=== PATIENT | male | born 1995 | race Caucasian/White ===

== ENCOUNTER 2019-09-16 09:56 | Emergency (ER) | payer MEDICAID ==
[~2019-09-16] VITALS: Ht 162.6 cm; Wt 63.5 kg
[2019-09-16 10:04] VITALS: BP 130/85
--- NOTE | 2019-09-16 10:06 | NUR ---
Patient ambulated to bed 12. RN evaluating patient at bedside.
--- NOTE | 2019-09-16 10:30 | NUR ---
dr prater at bedside.
--- NOTE | 2019-09-16 10:30 | NUR ---
c/o n/v/d with abdominal cramping x yesterday---cold sweats and chills today left work early due to symptoms. pt awake ,alert , afibrile , no meds taken. ambulatory with steady gait. hx--denies rx--none
--- NOTE | 2019-09-16 10:37 | NUR ---
Patient discharged with v/s stable. Written and verbal after care instructions given and explained regarding diarrhea . Patient alert, oriented and verbalized understanding of instructions. Ambulatory with steady gait. All questions addressed prior to discharge. ID band removed. Patient advised to follow up with PMD. Rx of ciprofloxacin 500 mg/tab ,motrin 600mg/tab , zofran , imodium given. Patient educated on indication of medication including possible reaction and side effects. Opportunity to ask questions provided and answered.excuse for work given to pt.
== END 2019-09-16 10:37 | disposition home or self-care (01) ==
LOC: MED 09:56
DX: R10.13 Epigastric pain (principal); R11.2 Nausea with vomiting, unspecified; R19.7 Diarrhea, unspecified
CPT/HCPCS: 99283

== ENCOUNTER 2023-03-31 10:18 | Emergency (ER) | payer MEDICAID, OTHER ==
[~2023-03-31] VITALS: Ht 170.2 cm; Wt 76.7 kg
[2023-03-31 10:25] VITALS: BP 158/89; PULSE 80; RESP 20; TEMP 98; O2SAT 99
[2023-03-31] MEDS ORDERED: RALT400T PO (11:29)
[2023-03-31] MEDS ORDERED: EMTR1TAB12 PO (11:29)
== END 2023-03-31 11:39 | disposition home or self-care (01) ==
LOC: MED 10:18
DX: R03.0 Elevated blood-pressure reading, without diagnosis of hypertension (principal); Z79.899 Other long term (current) drug therapy
CPT/HCPCS: 99281